=== PATIENT | male | born 1965 | race Caucasian/White ===

== ENCOUNTER 2017-01-22 19:38 | Emergency (ER) | payer SELFPAY ==
[2017-01-22 20:31] LABS: ABSOLUTE EOSINOPHILS # (AUTO) 0.1 10^3/uL (0.0-0.6); ABSOLUTE LYMPHOCYTES (AUTO) 0.7 10^3/uL (0.5-4.7); ABSOLUTE MONOCYTES (AUTO) 0.6 10^3/uL (0.1-1.4); ABSOLUTE NEUT (AUTO) 9.2 10^3/uL (1.7-8.2); BASOPHILS % (AUTO) 0.2 % (0-2); EOSINOPHILS % (AUTO) 0.6 % (0-6); HEMATOCRIT 49.8 % (37.9-51.0); HEMOGLOBIN 17.3 g/dL (13.5-17.0); HGB HCT DIFFERENCE 2.1; LYMPHOCYTES % (AUTO) 6.6 % (13-45); MEAN CORPUSCULAR HEMOGLOBIN 31.4 pg (27.0-33.4); MEAN CORPUSCULAR HGB CONC 34.8 g/dL (32.0-36.0); MEAN CORPUSCULAR VOLUME 90 fl (80-97); MONOCYTES % (AUTO) 5.9 % (3-13); RED BLOOD COUNT 5.51 10^6/uL (4.35-5.55); RED CELL DISTRIBUTION WIDTH 13.5 % (11.5-14.0); SEGMENTED NEUTROPHILS % (AUTO) 86.7 % (42-78); WHITE BLOOD COUNT 10.6 10^3/uL (4.0-10.5)
[2017-01-22 20:36] LABS: PROTHROMBIN TIME 12.8 SEC (11.4-15.4)
[2017-01-22 20:37] LABS: PARTIAL THROMBOPLASTIN TIME 23.5 SEC (23.5-35.8)
--- NOTE | 2017-01-22 20:38 | RADIOLOGY REPORT (SQ) ---
EXAM DESCRIPTION: CT HEAD WITHOUT COMPLETED DATE/TIME: 01/22/2017 8:17 pm REASON FOR STUDY: syncope today COMPARISON: None. TECHNIQUE: Axial images acquired through the brain without intravenous contrast. Images reviewed wi th bone, brain and subdural windows. Images stored on PACS. All CT scanners at this facility use dose modulation, iterative reconstruction, and/or weight based d osing when appropriate to reduce radiation dose to as low as reasonably achievable (ALARA). [facility]: Dose Right [facility]: CareDose [facility]: Dose Right [facility]: Teradose 4D [facility]: [employer] RADIATION DOSE: Up-to-date CT equipment and radiation dose reduction techniques were employed. CTDIv ol: 64.6 mGy. DLP: 1163 mGy-cm. mGy. LIMITATIONS: None. FINDINGS: VENTRICLES: Normal size and contour. CEREBRUM: No masses. No hemorrhage. No midline shift. No evidence for acute infarction. Normal gra y/white matter differentiation. No areas of low density in the white matter. CEREBELLUM: No masses. No hemorrhage. No alteration of density. No evidence for acute infarction. EXTRAAXIAL SPACES: No fluid collections. No masses. ORBITS AND GLOBE: No intra- or extraconal masses. Normal contour of globe without masses. CALVARIUM: No fracture. PARANASAL SINUSES: Mild maxillary mucosal thickening. SOFT TISSUES: No mass or hematoma. OTHER: No other significant finding. IMPRESSION: No acute intracranial findings. EVIDENCE OF ACUTE STROKE: NO. COMMENT: Quality ID # [id number]: Final reports with documentation of one or more dose reduction techniques (e.g., Automated exposure control, adjustment of the mA and/or kV according to patient size, use of iterative reconstruction technique) TECHNICAL DOCUMENTATION: JOB ID: [id number] 2017 [employer]- All Rights Reserved
[2017-01-22 20:43] LABS: ALANINE AMINOTRANSFERASE 31 U/L (21-72); ALBUMIN 4.1 g/dL (3.5-5.0); ALKALINE PHOSPHATASE 70 U/L (38-126); ANION GAP 14 (5-19); ASPARTATE AMINO TRANSFERASE 18 U/L (17-59); BILIRUBIN,DIRECT 0.4 mg/dL (0.0-0.4); BILIRUBIN,TOTAL 0.7 mg/dL (0.2-1.3); BLOOD UREA NITROGEN 12 mg/dL (7-20); CALCIUM 8.9 mg/dL (8.4-10.2); CARBON DIOXIDE 22 mmol/L (22-30); CHLORIDE 99 mmol/L (98-107); CREATINE KINASE 36 U/L (55-170); CREATININE RESULT 0.68 mg/dL (0.52-1.25); GLUCOSE 201 mg/dL (75-110); POTASSIUM 3.8 mmol/L (3.6-5.0); SODIUM 134.6 mmol/L (137-145); TOTAL PROTEIN 7.2 g/dL (6.3-8.2)
--- NOTE | 2017-01-22 20:49 | RADIOLOGY REPORT (SQ) ---
EXAM DESCRIPTION: CHEST SINGLE VIEW COMPLETED DATE/TIME: 01/22/2017 8:17 pm REASON FOR STUDY: syncope, diaphoretic COMPARISON: None. EXAM PARAMETERS: NUMBER OF VIEWS: One view. TECHNIQUE: Single frontal radiographic view of the chest acquired. RADIATION DOSE: NA LIMITATIONS: None. FINDINGS: LUNGS AND PLEURA: No pneumothorax. No consolidation or pleural effusion. MEDIASTINUM AND HILAR STRUCTURES: No masses. Contour normal. HEART AND VASCULAR STRUCTURES: Heart normal in size. Normal vasculature. BONES: No acute findings. HARDWARE: None in the chest. OTHER: No other significant finding. IMPRESSION: NO ACUTE RADIOGRAPHIC FINDING IN THE CHEST. TECHNICAL DOCUMENTATION: JOB ID: [id number]
[2017-01-22 20:57] LABS: CREATINE KINASE MB < 0.22 ng/mL (<4.55); TROPONIN I < 0.012 ng/mL
[2017-01-22] MEDS ORDERED: NORMAL SALINE 1000 ML 1,000 ML IV ONE (21:08)
--- NOTE | 2017-01-22 23:08 | RADIOLOGY REPORT (SQ) ---
EXAM DESCRIPTION: CT LTD RENAL STONE PROTOCOL ON COMPLETED DATE/TIME: 01/22/2017 10:56 pm REASON FOR STUDY: flank pain x 1 week, presyncope today COMPARISON: None. TECHNIQUE: CT scan of the abdomen and pelvis performed without intravenous or oral contrast. Images reviewed with lung, soft tissue, and bone windows. Reconstructed coronal and sagittal MPR images revi ewed. All images stored on PACS. All CT scanners at this facility use dose modulation, iterative reconstruction, and/or weight based d osing when appropriate to reduce radiation dose to as low as reasonably achievable (ALARA). [facility]: Dose Right [facility]: CareDose [facility]: Dose Right [facility]: Teradose 4D [facility]: [employer] RADIATION DOSE: mGy. LIMITATIONS: None. FINDINGS: LOWER CHEST: No significant findings. No nodules or infiltrates. NON-CONTRASTED LIVER, SPLEEN, ADRENALS: Evaluation limited by lack of IV contrast. Fatty infiltratio n of the liver. No identified significant masses. PANCREAS: No masses. No peripancreatic inflammatory changes. GALLBLADDER: No identified stones by CT criteria. No inflammatory changes to suggest cholecystitis. RIGHT KIDNEY AND URETER: No suspicious masses. Assessment limited by lack of IV contrast. No signif icant calcifications. No hydronephrosis or hydroureter. LEFT KIDNEY AND URETER: No suspicious masses. Assessment limited by lack of IV contrast. No signifi cant calcifications. No hydronephrosis or hydroureter. AORTA AND RETROPERITONEUM: No aneurysm. No retroperitoneal masses or adenopathy. BOWEL AND PERITONEAL CAVITY: No obvious masses or inflammatory changes. No free fluid. APPENDIX: Normal. PELVIS, BLADDER, AND ABDOMINAL WALL:No abnormal masses. No free fluid. Bladder normal. BONES: No significant findings. OTHER: No other significant finding. IMPRESSION: NO ACUTE PROCESS IN THE ABDOMEN OR PELVIS. COMMENT: Quality ID # [id number]: Final reports with documentation of one or more dose reduction techniques (e.g., Automated exposure control, adjustment of the mA and/or kV according to patient size, use of iterative reconstruction technique) TECHNICAL DOCUMENTATION: JOB ID: [id number]- All Rights Reserved
[2017-01-23] MEDS ORDERED: KETOROLAC TROMETHAMINE INJ/PF 30 MG/1 ML SDV ONE (00:09)
[2017-01-23 00:54] LABS: APPEARANCE,URINE TURBID; BILIRUBIN,URINE NEGATIVE (NEGATIVE); GLUCOSE, URINE >=500 mg/dL (NEGATIVE); KETONES,URINE TRACE mg/dL (NEGATIVE); LEUKOCYTE ESTERASE,URINE NEGATIVE (NEGATIVE); NITRITE,URINE NEGATIVE (NEGATIVE); PROTEIN,URINE 30 mg/dL (NEGATIVE); URINE SPECIFIC GRAVITY 1.032; UROBILINOGEN,URINE NEGATIVE mg/dL (<2.0)
--- NOTE | 2017-01-23 01:02 | ER Document Report ---
ED Syncope and Near Syncope - General Chief Complaint: Near Syncope Stated Complaint: DIZZINESS Time Seen by Provider: 01/22/17 19:44 Mode of Arrival: Medic Information source: Patient Notes: Pt is a 51 year old male who presents to the ER today for "not feeling well" all day since he woke up and sweating, being clammy today. Pt has felt weak and states that he "passed out" in her arms today prior to arrival. They called 911 when he did this. He doesn't remember this, but states he didn' t really lose consciousness, just was "out of it." Pt states he felt lightheaded before this. He denies fever/chills, n/vomiting/diarrhea, cough, runny nose, fever. He admits to body aches and chills today. He denied any chest pain, shortness of breath. He is on blood pressure medication. Past Medical History - General Information source: Patient - Social History Smoking Status: Former Smoker Family History: Reviewed & Not Pertinent Review of Systems - Review of Systems Constitutional: See HPI EENT: No symptoms reported Cardiovascular: No symptoms reported Respiratory: No symptoms reported Gastrointestinal: No symptoms reported Genitourinary: No symptoms reported Male Genitourinary: No symptoms reported Musculoskeletal: No symptoms reported Skin: See HPI Hematologic/Lymphatic: No symptoms reported Neurological/Psychological: See HPI Physical Exam - Vital signs Vitals: Pulse Ox 96 01/22/17 20:10 - Notes Notes: PHYSICAL EXAMINATION: GENERAL: mildly ill appearing, in no acute distress. HEAD: Atraumatic, normocephalic. EYES: Pupils equal round and reactive to light, extraocular movements intact, sclera anicteric, conjunctiva are normal. NECK: Normal range of motion, supple without lymphadenopathy LUNGS: CTAB and equal. No wheezes rales or rhonchi. HEART: Regular rate and rhythm without murmurs ABDOMEN: Soft, no tenderness. No guarding, no rebound BACK: no vertebral tenderness, normal ROM GI/: no CVA tenderness EXTREMITIES: Normal range of motion, no pitting edema. No cyanosis. NEUROLOGICAL: Cranial nerves grossly intact. Normal sensory/motor exams. PSYCH: Normal mood, normal affect. SKIN: Warm, Dry, good color, normal turgor, no rashes or lesions noted Course - Re-evaluation Re-evalutation: 01/23/17 02:38 Lab work is all completely unremarkable today including 2 sets of normal cardiac enzymes, EKG revealing normal sinus rhythm without evidence of ischemia or abnormality, head CT, chest x-ray and renal CT that report no acute pathology. Renal CT was ordered because eventually told me later on in the visit that he had been complaining of right flank pain for about a week. Patient is nontender to that area, nonetheless because of his sweating and clammy syncopal episode today I did order the CT scan of his abdomen which revealed no acute pathology. Urinalysis negative for infection. With body aches, chills, sweating and feeling clammy, it does seem like patient probably has a viral syndrome going on and I advised him of this but he was upset. He stated "I'd feel better if you told me it was my anxiety." He was quite angry upon leaving that I could not diagnose him with something different. is relieved. - Vital Signs Vital signs: Temp Pulse Resp BP Pulse Ox 98 F 23 H 118/74 95 01/23/17 01:14 01/23/17 01:00 01/23/17 01:14 01/23/17 01:00 - Laboratory Result Diagrams: 01/22/17 20:15 01/22/17 20:15 Laboratory results interpreted by me: 01/22/17 01/22/17 01/22/17 20:15 20:15 20:15 WBC 10.6 H Hgb 17.3 H Seg Neutrophils % 86.7 H Lymphocytes % 6.6 L Absolute Neutrophils 9.2 H Sodium 134.6 L Glucose 201 H Lactic Acid 2.7 H Creatine Kinase 36 L Urine Protein Urine Glucose (UA) Urine Ketones 01/22/17 23:05 WBC Hgb Seg Neutrophils % Lymphocytes % Absolute Neutrophils Sodium Glucose Lactic Acid Creatine Kinase Urine Protein 30 H Urine Glucose (UA) >=500 H Urine Ketones TRACE H Discharge - Discharge Clinical Impression: Pre-syncope, Body aches Condition: Stable Disposition: HOME, SELF-CARE Additional Instructions: Drink plenty of fluids. This appears to be a viral syndrome, rest at home over the next few days. Take motrin for your body aches. Return immediately for any new or worsening symptoms. Follow up with primary care provider, call tomorrow to make followup appointment. Prescriptions: Ibuprofen [Motrin 800 mg Tablet] 800 mg PO Q8H PRN #30 tab PRN Reason:
[2017-01-23 01:14] VITALS: BP 118/74
[2017-01-23 02:16] LABS: URINE BARBITURATES SCREEN NEGATIVE; URINE METHADONE SCREEN NEGATIVE; URINE OPIATES LOW NEGATIVE; URINE PHENCYCLIDINE SCREEN NEGATIVE
--- NOTE | 2017-01-23 08:17 | EKG REPORT ---
SEVERITY:- ABNORMAL ECG - SINUS RHYTHM PROBABLE INFERIOR INFARCT, OLD CONSIDER ANTERIOR INFARCT : Confirmed by: Devonte Richter MD 23-Jan-2017 08:16:02
== END 2017-01-23 01:15 | disposition home or self-care (01) ==
LOC: ER 19:38
DX: R55 Syncope and collapse (principal); R52 Pain, unspecified; R53.1 Weakness; R61 Generalized hyperhidrosis; R68.83 Chills (without fever); Z79.899 Other long term (current) drug therapy; Z87.891 Personal history of nicotine dependence; R45.4 Irritability and anger
CPT/HCPCS: 93005; 99285; 96374; 36415; 82553; 82550; 83605; 85025; 85610; 85730; 80053; 81001; 84484; 80307; 87804; 71010; 70450; 76380; 93010; J1885